=== PATIENT | male | born 1950 | race Caucasian/White ===

== ENCOUNTER 2018-06-14 05:21 | Day surgery (SDC) | payer MEDICAID ==
[~2018-06-14] VITALS: Ht 167 cm; Wt 78.0 kg
[2018-06-14] MEDS ORDERED: PHENYLEPHRINE HCL 10% OPHTH DROPS 5ML RIGHTEYE ONE (06:10)
[2018-06-14] MEDS ORDERED: TROPICAMIDE 1% OPHTH DROPS 15ML RIGHTEYE ONE (06:10)
[2018-06-14] MEDS ORDERED: CYCLOPENTOLATE HCL 1% OPHTH DROPS 2ML RIGHTEYE ONE (06:10)
[2018-06-14] MEDS ORDERED: BALANCED SALT IRRIG SOLN COMB1 500ML OP ONE (06:30)
[2018-06-14] MEDS ORDERED: SODIUM CHLORIDE 0.9% 500 ML IV ONE (06:45)
[2018-06-14] MEDS ORDERED: HYALURONATE SODIUM 14 MG/ML 0.85ML SYRINGE IO ONE (06:50)
[2018-06-14] MEDS ORDERED: MIDAZOLAM HCL 2 MG/2 ML VIAL ONE (07:56)
[2018-06-14] MEDS ORDERED: FENTANYL CITRATE/PF 50MCG/ML 2ML VIAL ONE (07:56)
[2018-06-14] MEDS ORDERED: ACETAZOLAMIDE SODIUM 500MG/VIAL IV ONE (08:11)
[2018-06-14] MEDS ORDERED: TIMO5DRO32 LEFTEYE (08:45)
[2018-06-14] MEDS ORDERED: BRIM5DRO BOTHEYE (08:45)
[2018-06-14] MEDS ORDERED: CALC667C PO (08:45)
[2018-06-14] MEDS ORDERED: INSU100I19 SQ (08:45)
[2018-06-14] MEDS ORDERED: FOLI0.8T23 PO (08:45)
[2018-06-14] MEDS ORDERED: DOCU-267 PO (08:45)
[2018-06-14] MEDS ORDERED: PRED1DRO LEFTEYE (08:45)
[2018-06-14] MEDS ORDERED: AMLO10TA80 PO (08:45)
[2018-06-14] MEDS ORDERED: XALAO LEFTEYE (08:45)
[2018-06-14] MEDS ORDERED: HYDR-4134 PO (08:45)
[2018-06-14] MEDS ORDERED: ASPI-1159 PO (08:45)
[2018-06-14] MEDS ORDERED: DORZ10DR8 BOTHEYE (08:45)
[2018-06-14] MEDS ORDERED: TETRACAINE 0.5% OPHTH DROPS 4ML ONE (11:47)
[2018-06-14] MEDS ORDERED: ACETYLCHOLINE CHLORIDE INTRAOCULAR SOLUTION 1:100 ELECTROLYTE DILUENT IO ONE (11:47)
[2018-06-14] MEDS ORDERED: CIPROFLOXACIN 0.3% OPHTH SOLN 2.5ML ONE (11:47)
[2018-06-14] MEDS ORDERED: NEO/POLYMYX B SULF/DEXAMETH OPHTH OINT 3.5GM ONE (11:47)
[2018-06-14] MEDS ORDERED: LIDOCAINE HCL 2%/EPINEPHRINE 1:100,000 20 ML VIAL INFIL ONE (11:47)
[2018-06-14] MEDS ORDERED: PREDNISOLONE ACETATE 1% OPHTH DROPS 1ML ONE (11:47)
[2018-06-14] MEDS ORDERED: BALANCED SALT IRRIG SOLN 15ML ONE (11:47)
== END 2018-06-14 10:00 | disposition home or self-care (01) ==
LOC: OR 05:21
PROVIDERS: ATTEND Ophthalmology
DX: H25.011 Cortical age-related cataract, right eye (principal); I12.0 Hypertensive chronic kidney disease with stage 5 chronic kidney disease or end stage renal disease; E11.22 Type 2 diabetes mellitus with diabetic chronic kidney disease; N18.6 End stage renal disease; D64.9 Anemia, unspecified; Z79.82 Long term (current) use of aspirin; Z79.4 Long term (current) use of insulin; Z79.899 Other long term (current) drug therapy; Z88.0 Allergy status to penicillin; Z98.890 Other specified postprocedural states; Z99.2 Dependence on renal dialysis; Z95.1 Presence of aortocoronary bypass graft
CPT/HCPCS: 36415; 66984; 82962; 84132; J1120; J2250; J3010; J3490; J7040; V2632

== ENCOUNTER 2018-07-12 05:43 | Day surgery (SDC) | payer MEDICAID ==
[~2018-07-12] VITALS: Ht 167 cm; Wt 78.0 kg
[~2018-07-12 05:43] MED LIST: AMLO10TA80 PO; ASPI-1159 PO; BRIM5DRO BOTHEYE; CALC667C PO; DOCU-267 PO; DORZ10DR8 BOTHEYE; FOLI0.8T23 PO; HYDR-4134 PO; INSU100I19 SQ; PRED1DRO LEFTEYE; TIMO5DRO32 LEFTEYE; XALAO LEFTEYE
[2018-07-12 06:41] LABS: BASOPHILS % 0.9 % (0.0-2.0); HEMATOCRIT. 38.8 % (42.0-52.0); HEMOGLOBIN. 12.8 g/dL (14.0-18.0); LYMPHOCYTES % 28.5 % (20.0-50.0); MEAN CORPUSCULAR HEMOGLOBIN 28.8 pg (28.0-32.0); MEAN CORPUSCULAR VOLUME 87.4 fL (80.0-94.0); MEAN PLATELET VOLUME 8.5 fl (7.4-10.4); MONOCYTES % 10.2 % (2.0-8.0); NEUTROPHILS % 57.4 % (40.0-76.0); PLATELET 254 x1000/uL (130-400); RED BLOOD CELL COUNT 4.44 mill/uL (4.7-6.1); RED CELL DISTRIBUTION WIDTH 17.5 % (11.6-14.6)
[2018-07-12] MEDS ORDERED: SODIUM CHLORIDE 0.9% 500 ML IV ONE (06:45)
[2018-07-12] MEDS ORDERED: TRIAMCINOLONE ACETONIDE 40MG/ML 1ML VIAL ONE (06:55)
[2018-07-12] MEDS ORDERED: TRYPAN BLUE 0.5 ML DISP.SYRIN IO ONE (06:56)
[2018-07-12] MEDS ORDERED: HYALURONATE SODIUM 14 MG/ML 0.85ML SYRINGE IO ONE (06:56)
[2018-07-12] MEDS ORDERED: VANCOMYCIN HCL 500 MG/VIAL ONE (08:00)
[2018-07-12] MEDS ORDERED: PROPOFOL 200MG/20ML VIAL IV ONE (08:01)
[2018-07-12] MEDS ORDERED: MIDAZOLAM HCL 2 MG/2 ML VIAL ONE (08:01)
[2018-07-12] MEDS ORDERED: LIDOCAINE HCL/PF 1% 10 MG/ML 5ML VIAL ONE (09:00)
[2018-07-12] MEDS ORDERED: ONDANSETRON HCL 4MG/2ML INJ ONE (09:01)
[2018-07-12] MEDS ORDERED: TETRACAINE 0.5% OPHTH DROPS 4ML ONE (11:43)
[2018-07-12] MEDS ORDERED: NEO/POLYMYX B SULF/DEXAMETH OPHTH OINT 3.5GM ONE (11:43)
[2018-07-12] MEDS ORDERED: PREDNISOLONE ACETATE 1% OPHTH DROPS 1ML ONE (11:43)
[2018-07-12] MEDS ORDERED: BUPIVACAINE HCL/PF 0.75% (7.5MG/ML) 10ML ONE (11:43)
[2018-07-12] MEDS ORDERED: LIDOCAINE HCL 2%/EPINEPHRINE 1:100,000 20 ML VIAL INFIL ONE (11:43)
[2018-07-12] MEDS ORDERED: BALANCED SALT IRRIG SOLN 15ML ONE (11:43)
== END 2018-07-12 10:23 | disposition home or self-care (01) ==
LOC: OR 05:43
PROVIDERS: ATTEND Ophthalmology
DX: H21.02 Hyphema, left eye (principal); H40.89 Other specified glaucoma; D64.9 Anemia, unspecified; I12.0 Hypertensive chronic kidney disease with stage 5 chronic kidney disease or end stage renal disease; E11.22 Type 2 diabetes mellitus with diabetic chronic kidney disease; N18.6 End stage renal disease; Z99.2 Dependence on renal dialysis; Z98.890 Other specified postprocedural states; Z95.1 Presence of aortocoronary bypass graft; Z79.82 Long term (current) use of aspirin; Z79.899 Other long term (current) drug therapy; Z79.4 Long term (current) use of insulin; Z88.0 Allergy status to penicillin
CPT/HCPCS: 36415; 66183; 67028; 80048; 85025; C1783; J2250; J2405; J3370; J3490; J7040; J2704; J3301; Q9957

== ENCOUNTER 2018-07-19 05:44 | Day surgery (SDC) | payer MEDICAID ==
[~2018-07-19] VITALS: Ht 167 cm; Wt 77.6 kg
[~2018-07-19 05:44] MED LIST changes: -DORZ10DR8 BOTHEYE; -TIMO5DRO32 LEFTEYE
[2018-07-19] MEDS ORDERED: CYCLOPENTOLATE HCL 1% OPHTH DROPS 2ML LEFTEYE NR (06:10)
[2018-07-19] MEDS ORDERED: PHENYLEPHRINE HCL 10% OPHTH DROPS 5ML LEFTEYE NR (06:10)
[2018-07-19] MEDS ORDERED: TROPICAMIDE 1% OPHTH DROPS 15ML LEFTEYE NR (06:10)
[2018-07-19] MEDS ORDERED: SODIUM CHLORIDE 0.9% 500 ML IV NR (06:40)
[2018-07-19] MEDS ORDERED: BALANCED SALT IRRIG SOLN COMB1 500ML OP ONE (07:15)
[2018-07-19] MEDS ORDERED: HYALURONATE SODIUM 14 MG/ML 0.85ML SYRINGE IO ONE (07:27)
[2018-07-19] MEDS ORDERED: MIDAZOLAM HCL 2 MG/2 ML VIAL ONE (08:26)
[2018-07-19] MEDS ORDERED: FENTANYL CITRATE/PF 50MCG/ML 2ML VIAL ONE (08:26)
[2018-07-19] MEDS ORDERED: PROPOFOL 200MG/20ML VIAL IV ONE (08:30)
[2018-07-19] MEDS ORDERED: TRYPAN BLUE 0.5 ML DISP.SYRIN IO ONE (08:50)
[2018-07-19] MEDS ORDERED: ONDANSETRON HCL 4MG/2ML INJ IV PRN (09:00)
[2018-07-19] MEDS ORDERED: HYDROMORPHONE HCL/PF 2MG/ML CPJ IV PRN (09:00)
[2018-07-19] MEDS ORDERED: MEPERIDINE HCL/PF 25MG/ML CPJ IV PRN (09:00)
[2018-07-19] MEDS ORDERED: LABETALOL 5MG/ML SYR 20 MG/4 ML SYRINGE IV PRN (09:00)
[2018-07-19] MEDS ORDERED: EPINEPHRINE 1:1000 1 MG/ML AMP ONE (09:17)
[2018-07-19] MEDS ORDERED: TETRACAINE 0.5% OPHTH DROPS 4ML ONE (13:09)
[2018-07-19] MEDS ORDERED: LIDOCAINE HCL/PF 2% 20 MG/ML 10ML VIAL ONE (13:09)
[2018-07-19] MEDS ORDERED: NEO/POLYMYX B SULF/DEXAMETH OPHTH OINT 3.5GM ONE (13:09)
[2018-07-19] MEDS ORDERED: PREDNISOLONE ACETATE 1% OPHTH DROPS 1ML ONE (13:09)
[2018-07-19] MEDS ORDERED: TROPICAMIDE 1% OPHTH DROPS 15ML ONE (13:09)
[2018-07-19] MEDS ORDERED: BALANCED SALT IRRIG SOLN 15ML ONE (13:09)
== END 2018-07-19 10:40 | disposition home or self-care (01) ==
LOC: OR 05:44
PROVIDERS: ATTEND Ophthalmology
DX: H25.22 Age-related cataract, morgagnian type, left eye (principal); H21.02 Hyphema, left eye; H43.12 Vitreous hemorrhage, left eye; H40.89 Other specified glaucoma; Z79.899 Other long term (current) drug therapy; Z79.4 Long term (current) use of insulin; Z88.0 Allergy status to penicillin; I12.0 Hypertensive chronic kidney disease with stage 5 chronic kidney disease or end stage renal disease; E11.22 Type 2 diabetes mellitus with diabetic chronic kidney disease; N18.6 End stage renal disease; Z99.2 Dependence on renal dialysis; Z79.82 Long term (current) use of aspirin; Z98.890 Other specified postprocedural states; Z95.1 Presence of aortocoronary bypass graft
CPT/HCPCS: 36415; 66940; 67005; 82962; 84132; J2250; J3010; J3490; J7040; Q9957; J2704